=== PATIENT | male | born 1985 | race Caucasian/White ===

== ENCOUNTER 2019-11-14 23:11 | Emergency (ER) | payer SELFPAY ==
--- NOTE | 2019-11-14 23:56 | EDM.PDOC ---
ED HPI GENERAL MEDICAL PROBLEM - General Chief Complaint: General Stated Complaint: DIFFICULTY BREATHING/HEADACHE/NUMBNESS Time Seen by Provider: 11/14/19 23:29 Source of Information: Reports: Patient History Limitations: Reports: No Limitations - History of Present Illness INITIAL COMMENTS - FREE TEXT/NARRATIVE: The patient presents with left sided chest pain. He says he has not felt right for a few months. The pain comes and goes. He has some shortness of breath with it. He has no fever or chills. He does not have a cough. He has no abdominal pain, nausea or vomiting. He has numbness to his face. He has this feeling that he is going to . He did say he drinks many beers daily. Onset: Gradual Duration: Week(s): Location: Reports: Chest Quality: Reports: Sharp Severity: Moderate Improves with: Reports: None Worsens with: Reports: None Associated Symptoms: Reports: Chest Pain, Shortness of Breath. Denies: Cough, Fever/Chills, Headaches, Nausea/Vomiting chest Pain Score (Numeric/FACES): 6 - Related Data Allergies Allergy/AdvReac Type Severity Reaction Status Date / Time No Known Allergies Allergy Verified 11/14/19 23:29 Home Meds: Home Meds Ondansetron [Zofran ODT] 4 mg PO Q6H PRN #20 tab.dis 11/15/19 [Rx] Past Medical History - Past Health History Medical/Surgical History: Denies Medical/Surgical History Social & Family History - Tobacco Use Smoking Status *Q: Former Smoker Used Tobacco, but Quit: Yes Month/Year Tobacco Last Used: 07/2019 - Alcohol Use Days Per Week of Alcohol Use: 7 Number of Drinks Per Day: 20 Total Drinks Per Week: 140 Date of Last Drink: 11/14/19 Time of Last Drink: 18:30 - Recreational Drug Use Recreational Drug Use: No ED ROS GENERAL - Review of Systems Review Of Systems: See Below Constitutional: Reports: No Symptoms HEENT: Reports: No Symptoms Respiratory: Reports: Shortness of Breath Cardiovascular: Reports: Chest Pain Endocrine: Reports: No Symptoms GI/Abdominal: Reports: No Symptoms : Reports: No Symptoms Musculoskeletal: Reports: No Symptoms ED EXAM, GENERAL - Physical Exam Exam: See Below Exam Limited By: No Limitations General Appearance: Alert, No Apparent Distress Ears: Normal External Exam Nose: Normal Inspection Head: Atraumatic, Normocephalic Neck: Normal Inspection Respiratory/Chest: No Respiratory Distress, Lungs Clear, Normal Breath Sounds Cardiovascular: Regular Rate, Rhythm, No Edema, No Murmur GI/Abdominal: Soft, Non-Tender, No Organomegaly, No Mass Back Exam: Normal Inspection Extremities: Normal Inspection EKG INTERPRETATION EKG Date: 11/14/19 Time: 23:54 Rhythm: Other (sinus tachycardia) Rate (Beats/Min): 106 [place]: Normal P-Wave: Present QRS: Normal ST-T: Normal QT: Normal Course - Vital Signs Last Recorded V/S: Last Vital Signs Temp 98.3 F 11/14/19 23:26 Pulse 96 11/14/19 23:26 Resp 18 11/14/19 23:26 BP 150/96 H 11/14/19 23:26 Pulse Ox 94 L 11/14/19 23:26 - Orders/Labs/Meds Orders: Active Orders 24 hr Category Date Time Status Cardiac Monitoring [RC] . DIRECTED Care 11/14/19 23:46 Active EKG Documentation Completion [RC] STAT Care 11/14/19 23:47 Active Chest 2V [CR] Stat Exams 11/14/19 23:47 Taken Labs: Laboratory Tests 11/14/19 11/14/19 Range/Units 23:55 23:55 WBC 7.19 (4.23-9.07) K/mm3 RBC 5.09 (4.63-6.08) M/mm3 Hgb 16.2 (13.7-17.5) gm/dl Hct 48.3 (40.1-51.0) % MCV 94.9 H (79.0-92.2) fl MCH 31.8 (25.7-32.2) pg MCHC 33.5 (32.2-35.5) g/dl RDW Std Deviation 43.4 (35.1-43.9) fL Plt Count 212 (163-337) K/mm3 MPV 8.9 L (9.4-12.3) fl Neut % (Auto) 67.2 (34.0-67.9) % Lymph % (Auto) 20.2 L (21.8-53.1) % [place] % (Auto) 9.6 (5.3-12.2) % Eos % (Auto) 1.8 (0.8-7.0) Baso % (Auto) 1.1 (0.1-1.2) % Neut # (Auto) 4.83 (1.78-5.38) K/mm3 Lymph # (Auto) 1.45 (1.32-3.57) K/mm3 [place] # (Auto) 0.69 (0.30-0.82) K/mm3 Eos # (Auto) 0.13 (0.04-0.54) K/mm3 Baso # (Auto) 0.08 (0.01-0.08) K/mm3 Sodium 132 L (136-145) mEq/L Potassium 3.5 (3.5-5.1) mEq/L Chloride 95 L (98-107) mEq/L Carbon Dioxide 25 (21-32) mEq/L Anion Gap 15.5 H (5-15) BUN 3 L (7-18) mg/dL Creatinine 0.7 (0.7-1.3) mg/dL Est Cr Clr Drug Dosing 131.79 mL/min Estimated GFR (MDRD) > 60 (>60) mL/min BUN/Creatinine Ratio 4.3 L (14-18) Glucose 85 (74-106) mg/dL Calcium 9.2 (8.5-10.1) mg/dL Total Bilirubin 0.6 (0.2-1.0) mg/dL AST 46 H (15-37) U/L ALT 47 (16-63) U/L Alkaline Phosphatase 91 (46-116) U/L Troponin I < 0.017 (0.00-0.056) ng/mL Total Protein 8.3 H (6.4-8.2) g/dl Albumin 4.6 (3.4-5.0) g/dl Globulin 3.7 gm/dL Albumin/Globulin Ratio 1.2 (1-2) Ethyl Alcohol 0.29 (0.00) gm% - Re-Assessments/Exams Free Text/Narrative Re-Assessment/Exam: 11/14/19 23:55 I ordered an EKG, CXR and labs. 11/15/19 00:49 His EKG shows a sinus tachycardia with no acute changes. His CXR shows nothing acute. His CBC looks good. His Na is low at 132. His AST was elevated at 46. His troponin is negative. His ETOH is 0.29. I feel this is related to his alcohol consumption. I ordered pepcid 20mg PO, bentyl 20mg PO and zofran 4mg PO. Departure - Departure Time of Disposition: 00:55 Disposition: Home, Self-Care 01 Condition: Good Clinical Impression: Atypical chest pain Alcohol intoxication Qualifiers: Complication of substance-induced condition: uncomplicated Qualified Code(s): F10.920 - Alcohol use, unspecified with intoxication, uncomplicated - Discharge Information *PRESCRIPTION DRUG MONITORING PROGRAM REVIEWED*: Not Applicable *COPY OF PRESCRIPTION DRUG MONITORING REPORT IN PATIENT VINEET: Not Applicable Prescriptions: Ondansetron [Zofran ODT] 4 mg PO Q6H PRN #20 tab.dis PRN Reason: Nausea\vomiting Referrals: PCP,Jian [Primary Care Provider] - Jean Pierre Valdovinos NP [Nurse Practitioner] - 1 Week Forms: ED Department Discharge Additional Instructions: Stop drinking. If you need help, call [facility] at . Take pepcid daily for 2 weeks. You can but that over the counter. Take zofran every 6 hours as needed for nausea or vomiting. Sepsis Event Note (ED) - Evaluation Sepsis Screening Result: No Definite Risk - Focused Exam Vital Signs: Vital Signs Temp Pulse Resp BP Pulse Ox 11/14/19 23:26 98.3 F 96 18 150/96 H 94 L - My Orders Last 24 Hours: My Active Orders 11/14/19 23:46 Cardiac Monitoring [RC] . DIRECTED 11/14/19 23:47 EKG Documentation Completion [RC] STAT Chest 2V [CR] Stat - Assessment/Plan Last 24 Hours: My Active Orders 11/14/19 23:46 Cardiac Monitoring [RC] . DIRECTED 11/14/19 23:47 EKG Documentation Completion [RC] STAT Chest 2V [CR] Stat
[2019-11-15] MEDS ORDERED: Ondansetron 4 MG Tab.DIS PO ONE (00:48)
[2019-11-15] MEDS ORDERED: Dicyclomine 10 MG Cap PO ONE (00:49)
[2019-11-15] MEDS ORDERED: Famotidine 20 MG Tab PO ONE (00:49)
--- NOTE | 2019-11-15 11:15 | CR ---
Chest: 2 views of the chest were obtained. Comparison: No prior chest imaging is available. Heart size and mediastinum are normal. Lungs are clear with no acute parenchymal change. Bony structures are unremarkable. Impression: 1. Nothing acute is seen on 2 view chest x-ray. Diagnostic code #1 This report was dictated in MDT
== END 2019-11-15 01:06 | disposition home or self-care (01) ==
LOC: JD.ED 23:11
DX: R07.89 Other chest pain (principal); F10.120 Alcohol abuse with intoxication, uncomplicated; R00.0 Tachycardia, unspecified; Z87.891 Personal history of nicotine dependence
CPT/HCPCS: 36415; 71046; 80053; 80307; 84484; 85025; 93005; 99285; A9270; 93010; 99284

== ENCOUNTER 2019-11-17 13:13 | Emergency (ER) | payer SELFPAY ==
--- NOTE | 2019-11-17 14:02 | EDM.PDOC ---
ED HPI GENERAL MEDICAL PROBLEM - General Chief Complaint: General Stated Complaint: KIDNEY PAIN/SOB Time Seen by Provider: 11/17/19 14:02 Source of Information: Reports: Patient History Limitations: Reports: No Limitations - History of Present Illness INITIAL COMMENTS - FREE TEXT/NARRATIVE: 34-year-old male presents to the ED with concerns that he has underlying kidney failure. He is complaining of pleuritic type pain left lateral chest wall for the last 3 months. Remote injury to the ribs on that side but nothing recent. Pain epigastrium intermittently. Dry heaves this morning without vomiting. No history of hematemesis. History of heavy alcohol use drinking up to 20 beers per day 7 days a week up until 3 days ago when he was seen in the ED and advised to stop drinking. He states that he has taken this to heart and has not drank since. Today he is feeling ill with discomfort in the epigastrium and both flanks most likely due to metabolic acidosis and ketosis. He states he did have a little food last night for the first time in 3 to 4 days. Currently mildly nauseated. No discomfort with voiding. Stools are loose chronically from alcohol use. He has no known history of pancreatitis. He was seen through the ED by Dr. Corea-- 3 days ago and lab tests at that time were essentially normal as well as a chest x-ray and ECG. Patient appears very apprehensive and anxious. He reports that he was started on Zofran 4mg -- 3 days ago and took 1 tablet and then developed a skin rash which was quite pruritic. The next day similar event occurred and therefore he is discontinued it. Today he did take a Benadryl 25 mg tablet. This seems to have relieved his skin itching. Onset: Gradual, Unknown/Unsure (Many problems that he is bringing up are chronic.), Other (Is complaining of left sided intermittent pleuritic chest pain for 3 months. No known injuries but remote history of trauma to this area. Chest x-ray reviewed from 3 days ago shows no evidence of previous fractured ribs or healed rib fractures. Certainly no new rib fractures. Lung field is clear.) Duration: Chronic (Left chest wall pain for 3 months.), Other (Upper abdominal pain flank pain over the last 2 days.) Location: Reports: Abdomen (Lateral upper abdominal discomfort.), Back (Lateral flank pain) Quality: Reports: Ache, Pressure, Other Severity: Moderate (Neuritic left-sided chest pain) Improves with: Reports: None Worsens with: Reports: Other Context: Denies: Activity (Worsens when he deep breathes or lies on his left side.), Exercise, Lifting, Sick Contact, Trauma, Other Associated Symptoms: Reports: Chest Pain (Inferior retrosternal chest pain likely due to esophagitis), Loss of Appetite, Malaise, Nausea/Vomiting (Dry heaves this morning but did not bring up any emesis.), Shortness of Breath, Weakness. 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 Very dry skin .) Social & Family History - Tobacco Use Smoking Status *Q: Current Every Day Smoker Years of Tobacco use: 16 Packs/Tins Daily: 0.5 Month/Year Tobacco Last Used: 2.5 weeks ago - Caffeine Use Caffeine Use: Reports: None - Alcohol Use Alcohol Use History: Yes Days Per Week of Alcohol Use: 7 (Was drinking up to 20 beers per day. He quit 3 days ago.) - Recreational Drug Use Recreational Drug Use: No - Living Situation & Occupation Living situation: Reports: Single Occupation: Unemployed ED ROS GENERAL - Review of Systems Review Of Systems: See Below Constitutional: Reports: Malaise, Weakness, Fatigue, Decreased Appetite. Denies: Fever, Chills HEENT: Reports: No Symptoms Respiratory: Reports: Shortness of Breath, Other (Intermittent left-sided ple uritic chest pain for 3 months) Cardiovascular: Reports: Chest Pain (Left pleuritic chest pain for 3 months), Lightheadedness (Occasionally feels lightheaded and numbness in his forehead.). Denies: Blood Pressure Problem (Blood pressure is elevated on today's examination as he is very anxious.), Claudication, Dyspnea on Exertion, Edema, Orthopnea Endocrine: Reports: Fatigue GI/Abdominal: Reports: Decreased Appetite, Nausea (By heaves this morning with no production of emesis.) : Reports: Flank Pain (Lateral flank pressure discomfort), Frequency Musculoskeletal: Reports: Back Pain (Bilateral flanks.) Skin: Reports: Dryness (Dry eczematous type skin), Pruritis (. Generalized pruritus.) Neurological: Reports: Numbness, Tingling (His feet forehead at times.), Tremors (They were quite bad this morning better a bit now.). Denies: Trouble Speaking, Difficulty Walking Psychiatric: Reports: Anxiety Hematologic/Lymphatic: Reports: No Symptoms Immunologic: Reports: No Symptoms ED EXAM, GENERAL - Physical Exam Exam: See Below Exam Limited By: No Limitations General Appearance: Alert, WD/WN, Anxious, Moderate Distress, Other (Anxious young man. Ruborous complexion. Temperature is 36.4 pulse is 120 in sinus tachycardia on monitor respiratory it was 18 to 20/min with a smell of ketones on his breath. Pulse ox 99% room air BP elevated at 158 113 but it did come down to 1 40-1 03 after he was here for approximately 20 minutes.) Eye Exam: Bilateral Eye: Normal Inspection, PERRL Throat/Mouth: Other (Is dry and coated.) Head: Atraumatic, Normocephalic Neck: Normal Inspection, Supple, Non-Tender, Full Range of Motion. No: Carotid Bruit, Lymphadenopathy (L), Lymphadenopathy (R), Thyromegaly Respiratory/Chest: No Respiratory Distress, Lungs Clear, Normal Breath Sounds, Chest Non-Tender, Other (I can easily palpate all of his ribs there is no crepitus subcutaneous emphysema or evidence of previous fractured ribs. No significant pain on firm compression of chest wall on the left side.) Cardiovascular: Normal Peripheral Pulses, Regular Rate, Rhythm, No Edema, No G allop, No Murmur, No Rub Peripheral Pulses: 3+: Carotid (L), Carotid (R), Posterior Tibial (L), Posterior Tibial (R), Dorsalis Pedis (L), Dorsalis Pedis (R) GI/Abdominal: Normal Bowel Sounds, Soft, Non-Tender, No Organomegaly, No Abnormal Bruit, No Mass, Pelvis Stable, Other (Male) Exam: No Hernia (Very thin young man. No surgical scars) Back Exam: Normal Inspection, Full Range of Motion. No: CVA Tenderness (L), CVA Tenderness (R) Extremities: Normal Inspection, Normal Range of Motion, Non-Tender, No Pedal Edema Neurological: Alert, Oriented, CN II-XII Intact, Normal Cognition, Normal Gait, Other (No significant hand tremor at this time) Psychiatric: Anxious (Streaming anxious.) Skin Exam: Warm, Dry, Intact, Other (Patient has a generalized erythematous skin rash due to dry skin i.e. sandpaper like feel to the skin in both inguinal areas he has areas of skin peeling which appears to to be secondary to eczematous dermatitis with secondary fungal infection. He has also reacted to t he glue from cardiac patches placed 3 days ago with large rings of redness where they were placed.) Course - Vital Signs Last Recorded V/S: Last Vital Signs Temp 37.1 C 11/17/19 16:24 Pulse 72 11/17/19 16:24 Resp 18 11/17/19 16:24 BP 132/90 11/17/19 16:24 Pulse Ox 100 11/17/19 16:24 - Orders/Labs/Meds Orders: Active Orders 24 hr Category Date Time Status Dextrose 5%-0.9% NaCl [Dextrose 5%-Normal Saline] 1,000 Med 11/17/19 16:15 Active ml IV ASDIRECTED Dextrose 5%-Lactated Ringers 1,000 ml Med 11/17/19 14:15 Active IV ASDIRECTED Medication Orders Dextrose/Lactated Ringer's (Dextrose 5%-Lactated Ringers) 1,000 mls @ 999 mls/ hr IV ASDIRECTED LYUDMILA Last Admin: 11/17/19 14:39 Dose: 999 mls/hr Documented by: GENNA Dextrose/Sodium Chloride (Dextrose 5%-Normal Saline) 1,000 mls @ 999 mls/hr IV ASDIRECTED LYUDMILA Last Admin: 11/17/19 16:23 Dose: 999 mls/hr Documented by: GENNA Labs: Laboratory Tests 11/17/19 11/17/19 11/17/19 Range/Units 14:40 14:45 14:45 WBC 6.34 (4.23-9.07) K/mm3 RBC 5.42 (4.63-6.08) M/mm3 Hgb 17.3 (13.7-17.5) gm/dl Hct 51.1 H (40.1-51.0) % MCV 94.3 H (79.0-92.2) fl MCH 31.9 (25.7-32.2) pg MCHC 33.9 (32.2-35.5) g/dl RDW Std Deviation 41.9 (35.1-43.9) fL Plt Count 175 (163-337) K/mm3 MPV 9.5 (9.4-12.3) fl Neutrophils % (Manual) 77 H (40-60) % Band Neutrophils % 0 (0-10) % Lymphocytes % (Manual) 17 L (20-40) % Atypical Lymphs % 2 % Monocytes % (Manual) 4 (2-10) % Eosinophils % (Manual) 0 L (0.8-7.0) % Basophils % (Manual) 0 L (0.2-1.2) Platelet Estimate Adequate RBC Morph Comment Normal Sodium 131 L (136-145) mEq/L Potassium 3.3 L (3.5-5.1) mEq/L Chloride 90 L (98-107) mEq/L Carbon Dioxide 27 (21-32) mEq/L Anion Gap 17.3 H (5-15) BUN 8 (7-18) mg/dL Creatinine 0.8 (0.7-1.3) mg/dL Est Cr Clr Drug Dosing 102.06 mL/min Estimated GFR (MDRD) > 60 (>60) mL/min BUN/Creatinine Ratio 10.0 L (14-18) Glucose 93 (74-106) mg/dL Calcium 9.7 (8.5-10.1) mg/dL Magnesium 2.0 (1.8-2.4) mg/dl Total Bilirubin 1.1 H (0.2-1.0) mg/dL AST 53 H (15-37) U/L ALT 50 (16-63) U/L Alkaline Phosphatase 88 (46-116) U/L C-Reactive Protein 0.4 (<1.0) mg/dL Total Protein 8.4 H (6.4-8.2) g/dl Albumin 4.8 (3.4-5.0) g/dl Globulin 3.6 gm/dL Albumin/Globulin Ratio 1.3 (1-2) Lipase 131 (73-393) U/L Urine Color Yellow (Yellow) Urine Appearance Clear (Clear) Urine pH 7.0 (5.0-8.0) Ur Specific [place] 1.015 (1.005-1.030) Urine Protein Negative (Negative) Urine Glucose (UA) Negative (Negative) Urine Ketones Negative (Negative) Urine Occult Blood Negative (Negative) Urine Nitrite Negative (Negative) Urine Bilirubin Negative (Negative) Urine Urobilinogen 0.2 (0.2-1.0) Ur Leukocyte Esterase Negative (Negative) Urine RBC 0-5 (0-5) /hpf Urine WBC Not seen (0-5) /hpf Ur Squamous Epith Cells Not seen (0-5) /hpf Urine Bacteria Occasional (FEW) /hpf Urine Mucus Not seen (FEW) /hpf Ketones (0.0-0.3) mM /24/20 Range/Units 14:45 WBC (4.23-9.07) K/mm3 RBC (4.63-6.08) M/mm3 Hgb (13.7-17.5) gm/dl Hct (40.1-51.0) % MCV (79.0-92.2) fl MCH (25.7-32.2) pg MCHC (32.2-35.5) g/dl RDW Std Deviation (35.1-43.9) fL Plt Count (163-337) K/mm3 MPV (9.4-12.3) fl Neutrophils % (Manual) (40-60) % Band Neutrophils % (0-10) % Lymphocytes % (Manual) (20-40) % Atypical Lymphs % % Monocytes % (Manual) (2-10) % Eosinophils % (Manual) (0.8-7.0) % Basophils % (Manual) (0.2-1.2) Platelet Estimate RBC Morph Comment Sodium (136-145) mEq/L Potassium (3.5-5.1) mEq/L Chloride (98-107) mEq/L Carbon Dioxide (21-32) mEq/L Anion Gap (5-15) BUN (7-18) mg/dL Creatinine (0.7-1.3) mg/dL Est Cr Clr Drug Dosing mL/min Estimated GFR (MDRD) (>60) mL/min BUN/Creatinine Ratio (14-18) Glucose (74-106) mg/dL Calcium (8.5-10.1) mg/dL Magnesium (1.8-2.4) mg/dl Total Bilirubin (0.2-1.0) mg/dL AST (15-37) U/L ALT (16-63) U/L Alkaline Phosphatase (46-116) U/L C-Reactive Protein (<1.0) mg/dL Total Protein (6.4-8.2) g/dl Albumin (3.4-5.0) g/dl Globulin gm/dL Albumin/Globulin Ratio (1-2) Lipase (73-393) U/L Urine Color (Yellow) Urine Appearance (Clear) Urine pH (5.0-8.0) Ur Specific [place] (1.005-1.030) Urine Protein (Negative) Urine Glucose (UA) (Negative) Urine Ketones (Negative) Urine Occult Blood (Negative) Urine Nitrite (Negative) Urine Bilirubin (Negative) Urine Urobilinogen (0.2-1.0) Ur Leukocyte Esterase (Negative) Urine RBC (0-5) /hpf Urine WBC (0-5) /hpf Ur Squamous Epith Cells (0-5) /hpf Urine Bacteria (FEW) /hpf Urine Mucus (FEW) /hpf Ketones 0.65 (0.0-0.3) mM Meds: Medications Generic Name Dose Route Start Last Admin Trade Name Freq PRN Reason Stop Dose Admin Dextrose/Lactated Ringer's 1,000 mls @ 999 mls/hr 11/17/19 14:15 11/17/19 14:39 Dextrose 5%-Lactated Ringers IV 999 mls/hr ASDIRECTED LYUDMILA Administration Dextrose/Sodium Chloride 1,000 mls @ 999 mls/hr 11/17/19 16:15 11/17/19 16:23 Dextrose 5%-Normal Saline IV 999 mls/hr ASDIRECTED LYUDMILA Administration Discontinued Medications Generic Name Dose Route Start Last Admin Trade Name Freq PRN Reason Stop Dose Admin Famotidine 20 mg 11/17/19 14:14 11/17/19 14:40 Pepcid IVPUSH 11/17/19 14:15 20 mg ONETIME ONE Administration Potassium Chloride 10 meq/ 100 mls @ 100 mls/hr 11/17/19 16:09 11/17/19 16:23 Premix IV 11/17/19 17:08 100 mls/hr ONETIME ONE Administration Lorazepam 0.5 mg 11/17/19 14:13 11/17/19 14:40 Ativan IV 11/17/19 14:14 0.5 mg ONETIME ONE Administration - Radiology Interpretation Free Text/Narrative:: 34-year-old male presents to the ED with generalized feeling of unwellness particularly bilateral flank pain upper abdominal pain left pleuritic chest pain. By history he is a chronic alcoholic who is now trying to stop drinking. He was drinking up to 20 beers per day /a week up until 3 days ago. He has been drinking heavily like this for several years. He is unemployed. At this time he is extremely anxious. He is worried that his kidneys are failing. History suggest that he has chronic gastroesophageal reflux and likely esophagitis. Previous work-up [address] Soriano and revealed a normal ECG other than sinus tachycardia and normal chest x-ray. Labs were also normal. I believe he is mildly ketotic at present. This is likely the reason for his diffuse upper abdominal and flank discomfort. Plan D5 LR at open. Given Ativan 0.5 mg IV and Pepcid 20 mg IV. We will see how he responds to low-dose Ativan because he is very thin. He has hypertension and tachycardia at rest. Routine labs to be performed including serum ketones. Urinalysis when 1 becomes available. - Re-Assessments/Exams Free Text/Narrative Re-Assessment/Exam: 11/17/19 16:02 White count is 6.34. Differential shows 77% neutrophils no bands cells. Hemoglobin is 17.3 with a hematocrit of 51.1 suggesting concentration and volume depletion. Platelet count is 175,000. Note MCV is mildly elevated at 94.3 of note the differential shows 17% lymphocytes and 2% atypical lymphs. Sodium is 131 with a potassium of 3.3 both low. Chloride is 90 with a bicarb of 27 anion gap is elevated at 17.3 BUN is 8 with a creatinine of 0.8. GFR is greater than 60. Glucose is 93 calcium is 9.7 magnesium is normal at 2.0 total bilirubin is 1.1 with an AST of 53 and an ALT of 50. Alk phosphatase is normal at 88. C-reactive protein is 0.4. Total protein is 8.4 with an albumin fraction of 4.8. Serum lipase is normal at 131. Urinalysis shows no signs of infection. Of note serum ketones are elevated at 0.65. 1 view of the abdomen was obtained and reveals no significant abnormalities. He has a colon filled with air which does travel up to his left hemidiaphragm. I noted on chest x-ray that there was increased stool in this area a few days ago. 11/17/19 16:10 reports that he is feeling better after a liter of fluids which has just completed infusion. Due to his hemoconcentration and metabolic acidosis I am going to give him a second liter of fluid I D5 normal saline at open. We will also give him a K rider to improve his serum potassium level. Departure - Departure Time of Disposition: 17:48 Disposition: Home, Self-Care 01 Condition: Fair Clinical Impression: Metabolic acidosis with increased anion gap and accumulation of organic acids, Ketoacidosis, Alcohol abuse with alcohol-induced anxiety disorder - Discharge Information *PRESCRIPTION DRUG MONITORING PROGRAM REVIEWED*: Not Applicable *COPY OF PRESCRIPTION DRUG MONITORING REPORT IN PATIENT VINEET: Not Applicable Instructions: Metabolic Acidosis, Alcohol Use Disorder, Alcohol Abuse and Dependence Information, Adult Referrals: PCP,None [Primary Care Provider] - Forms: ED Department Discharge Additional Instructions: Evaluation in the emergency room today in regards to diffuse abdominal pain and flank pain over the last 24 to 36 hours. History suggests fairly heavy alcohol use over the last several days with recent binge of alcohol use. This has resulted in an alcohol-induced ketosis which means your body was breaking down all your fats for energy and using the alcohol for energy. Once the fat is broken down in your bloodstream it causes acids to accumulate which cause a syndrome called metabolic acidosis which causes nausea upset stomach abdominal pain flank pain etc. This was confirmed by blood work today. Treatment is intravenous fluids containing sugar which was 2 L in the emergency department. It is important that you do not drink alcohol for at least a couple more days to allow your body to adjust and recover from current ketoacidosis and that you can resume normal diet. Has used of Pepcid 20 mg once daily at bedtime to help heal your food pipe and stomach from excessive use of alcohol. To your generalized skin rash it is due to dryness of the skin. Suggest showering with no soap added or using only Dove or Ivory soap nonallergenic. Excessive bathing or showering will dry out your skin . You need to purchase some [id number] skin lotion such as Lubriderm,young-ve. Also you will need to purchase some [id number] Lamisil cream and apply to your groin on both sides at least once daily at bedtime until the rash clears up completely. You will need to use the skin lotion twice daily to take away the itch and burning from dry skin. Getting rehydrated will also help with the skin itch as well. Sepsis Event Note (ED) - Evaluation Sepsis Screening Result: No Definite Risk - Focused Exam Vital Signs: Vital Signs Temp Pulse Resp BP Pulse Ox 11/17/19 16:24 37.1 C 72 18 132/90 100 11/17/19 13:30 36.4 C 120 H 18 158/113 H 99 - My Orders Last 24 Hours: My Active Orders 11/17/19 14:15 Dextrose 5%-Lactated Ringers 1,000 ml IV ASDIRECTED 11/17/19 16:15 Dextrose 5%-0.9% NaCl [Dextrose 5%-Normal Saline] 1,000 ml IV ASDIRECTED - Assessment/Plan Last 24 Hours: My Active Orders 11/17/19 14:15 Dextrose 5%-Lactated Ringers 1,000 ml IV ASDIRECTED 11/17/19 16:15 Dextrose 5%-0.9% NaCl [Dextrose 5%-Normal Saline] 1,000 ml IV ASDIRECTED
[2019-11-17] MEDS ORDERED: LORazepam 2 MG/ML SDV IV ONE (14:13)
[2019-11-17] MEDS ORDERED: Famotidine 20 MG/2 ML SDV IVPUSH ONE (14:14)
[2019-11-17] MEDS ORDERED: Dextrose 5%-Lactated Ringers 1,000 ML IV SCH (14:15)
--- NOTE | 2019-11-17 15:44 | CR ---
Abdomen: Supine view of the abdomen was obtained. Comparison: No prior study. Bowel gas pattern is normal. No soft tissue abnormality is seen. No abnormal calcifications are noted. Bony structures are unremarkable. Impression: 1. Nothing acute is seen on supine abdominal x-ray. Diagnostic code #1 This report was dictated in MDT
[2019-11-17] MEDS ORDERED: Potassium Chloride 10 MEQ in Premix Bag 1 BAG IV ONE (16:09)
[2019-11-17] MEDS ORDERED: Dextrose 5%-0.9% NaCl 1,000 ML IV SCH (16:15)
== END 2019-11-17 18:35 | disposition home or self-care (01) ==
LOC: JD.ED 13:13
DX: E87.2 Acidosis (principal); F10.180 Alcohol abuse with alcohol-induced anxiety disorder; F17.210 Nicotine dependence, cigarettes, uncomplicated
CPT/HCPCS: 36415; 74018; 80053; 81001; 82009; 83690; 83735; 85007; 85027; 86140; 96361; 96365; 96375; 99284; J2060; J3480; J3490; J7042; J7121

== ENCOUNTER 2023-06-17 04:57 | Emergency (ER) | payer BC ==
[2023-06-17 05:38] LABS: BASOPHILS ABSOLUTE AUTO 0.1 K/mm3 (0.0-0.2); BASOPHILS PERCENT AUTO 0.5 % (0.0-1.0); EOSINOPHILS PERCENT AUTO 0.2 % (0.0-6.0); HEMATOCRIT 50.7 % (42.0-52.0); HEMOGLOBIN 17.6 gm/dl (14.0-18.0); IMMATURE GRAN ABSOLUTE AUTO 0.03 K/mm3 (0.00-0.05); IMMATURE GRAN PERCENT AUTO 0.3 % (0.0-0.4); LYMPHOCYTES ABSOLUTE AUTO 0.9 K/mm3 (1.0-4.8); LYMPHOCYTES PERCENT AUTO 8.6 % (24.0-44.0); MEAN CORPUSCULAR HEMOGLOBIN 32.1 pg (28.0-32.0); MEAN CORPUSCULAR HGB CONC 34.7 g/dl (32.0-36.0); MEAN CORPUSCULAR VOLUME 92.5 fl (83.0-99.0); MEAN PLATELET VOLUME 8.9 fl (9.4-12.4); MONOCYTES ABSOLUTE AUTO 0.7 K/mm3 (0.0-0.8); MONOCYTES PERCENT AUTO 6.8 % (0.0-8.0); NEUTROPHILS PERCENT AUTO 83.6 % (41.0-71.0); PLATELET COUNT,PLT 273 K/mm3 (150-400); RED BLOOD CELL COUNT 5.48 M/mm3 (4.52-5.90); WHITE BLOOD CELL COUNT,WBC 10.76 K/mm3 (3.9-11.3)
[2023-06-17 05:51] LABS: A/G RATIO 1.4 (1-2); ANION GAP 20.1 (5-15); BILIRUBIN TOTAL 1.9 mg/dL (0.2-1.0); CALCIUM 9.6 mg/dL (8.5-10.1); CREATININE 0.9 mg/dL (0.7-1.3); EST CRCL DRUG DOSING (CG) 85.25 mL/min; MAGNESIUM 1.9 mg/dL (1.8-2.4); POTASSIUM,K 4.1 mEq/L (3.5-5.1); PROTEIN TOTAL,TP 8.7 g/dl (6.4-8.2)
[2023-06-17] MEDS: cloNIDine 0.1 MG Tab PO ONE (06:15)
[2023-06-17] MEDS: Sodium Chloride 0.9% 10 ML Syringe FLUSH PRN (06:16)
[2023-06-17 06:26] LABS: APPEARANCE,URINE CLEAR (Clear); BILIRUBIN,URINE 1+ (Negative); COLOR,URINE YELLOW (Yellow); GLUCOSE,URINE NEGATIVE (Negative); KETONES,URINE 3+ (Negative); LEUKOCYTE ESTERASE,URINE NEGATIVE (Negative); NITRITE,URINE NEGATIVE (Negative); OCCULT BLOOD,URINE NEGATIVE (Negative); PROTEIN,URINE NEGATIVE (Negative)
[2023-06-17 06:32] LABS: AMORPHOUS SEDIMENT,URINE FEW /hpf (NOT SEEN); BACTERIA,URINE RARE /hpf (FEW); EPITHELIAL CELLS,URINE NOT SEEN /hpf (0-5); HYALINE CASTS,URINE 0-5 /lpf (0-5); MUCUS,URINE NOT SEEN /hpf (FEW); RBC,URINE 0-5 /hpf (0-5); WBC,URINE 0-5 /hpf (0-5)
[2023-06-17 06:34] LABS: BARBITURATE SCREEN,URINE NEGATIVE (CUTOFF=200); BENZODIAZEPINES SCREEN,URINE NEGATIVE (CUTOFF=150); BUPRENORPHINE SCREEN,URINE NEGATIVE (CUTOFF=10); METHADONE SCREEN, URINE NEGATIVE (CUT0FF=200); METHAMPHETAMINES SCREEN, URINE NEGATIVE (CUTOFF=500); OXYCODONE SCREEN,URINE NEGATIVE (CUT0FF=100); THC SCREEN,URINE 20 NG/ML NEGATIVE (CUTOFF=50)
[2023-06-17 06:35] LABS: AMPHETAMINES SCREEN, URINE NEGATIVE (CUTOFF=500)
== END 2023-06-17 06:45 | disposition home or self-care (01) ==
LOC: JD.ED 04:57
DX: M54.6 Pain in thoracic spine (principal); Z87.891 Personal history of nicotine dependence
CPT/HCPCS: 36415; 80053; 80306; 80307; 81001; 83735; 85025; 99283; A9270; J3490

== ENCOUNTER 2023-12-31 09:48 | Emergency (ER) | payer BC ==
[2023-12-31] MEDS: Diphtheria,Pertussis(Acell),Tetanus Vaccine 0.5 ML Syringe IM ONE (11:44)
[2023-12-31] MEDS: ceFAZolin 2 GM in Sodium Chloride 0.9% 50 ML IV ONE (11:46)
[2023-12-31] MEDS: Lidocaine 1% 10 ML MDV INJECT ONE (12:25)
[2023-12-31] MEDS: Lidocaine 1% 20 ML MDV INJECT ONE (13:00)
== END 2023-12-31 14:30 | disposition home or self-care (01) ==
LOC: JD.ED 09:48
DX: S62.631B Displaced fracture of distal phalanx of left index finger, initial encounter for open fracture (principal); W31.9XXA Contact with unspecified machinery, initial encounter; Y99.0 Civilian activity done for income or pay; Z23 Encounter for immunization
CPT/HCPCS: 64450; 73140; 90471; 90715; 96365; 99283; J0690; J3490